=== PATIENT | female | born 1975 | race Caucasian/White ===

== ENCOUNTER 2018-06-19 09:59 | Emergency (ER) | payer BC, MEDICAID, OTHER ==
[2018-06-19 11:02] VITALS: BP 111/65
--- NOTE | 2018-06-19 12:03 | UC ---
Ear Complaint HPI - HPI Summary HPI Summary: Pt c/o gradual worsening of right ear pain X 2 days. Denies fever, chills, URI symptoms or injury. - History of Current Complaint Chief Complaint: UCEar Stated Complaint: RT EAR COMPLAINT Time Seen by Provider: 06/19/18 11:24 Hx Obtained From: Patient Hx From Patient Unobtainable Due To: Dementia Hx Last Menstrual Period: 05/31/18 ?: No Onset/Duration: Gradual Onset, Lasting Days, Still Present, Worse Since Severity Initially: Mild Severity Currently: Mild Pain Intensity: 3 Associated Signs/Symptoms: Positive: Hearing Loss, Foreign Body Sensation - Allergies/Home Medications Allergies/Adverse Reactions: Allergies Allergy/AdvReac Type Severity Reaction Status Date / Time No Known Allergies Allergy Verified 06/19/18 11:01 Home Medications: Home Medications Ascorbic Acid [Vitamin C] 1,000 mg PO ONCE PRN 06/19/18 [History Confirmed 06/19] Echinacea 380 mg PO ONCE PRN 06/19/18 [History Confirmed 06/19/18] Zinc 1 tab PO ONCE PRN 06/19/18 [History Confirmed 06/19/18] PMH/Surg Hx/FS Hx/Imm Hx Previously Healthy: Yes - Surgical History Surgical History: Yes Surgery Procedure, Year, and Place: tubes tied - Family History Known Family History: Positive: Cardiac Disease - Social History Occupation: Employed Full-time Lives: With Family Alcohol Use: Occasionally Substance Use Type: None Smoking Status (MU): Never Smoked Tobacco Have You Smoked in the Last Year: No Review of Systems All Other Systems Reviewed And Are Negative: Yes Constitutional: Positive: Negative Skin: Positive: Negative Eyes: Positive: Blurred Vision ENT: Positive: Ear Ache Respiratory: Positive: Negative Cardiovascular: Positive: Negative Gastrointestinal: Positive: Negative Genitourinary: Positive: Negative Motor: Positive: Negative Neurovascular: Positive: Negative Musculoskeletal: Positive: Negative Neurological: Positive: Negative Psychological: Positive: Negative Is Patient Immunocompromised?: No Physical Exam Triage Information Reviewed: Yes Appearance: Well-Appearing Vital Signs: Initial Vital Signs Temp 98.6 F 06/19/18 10:58 Pulse 84 06/19/18 10:58 Resp 18 06/19/18 10:58 BP 111/65 06/19/18 10:58 Pulse Ox 99 06/19/18 10:58 Vital Signs Reviewed: Yes Eye Exam: Normal ENT: Positive: Other - cerumen in right ear canal. Parital removal. Pt unable to tolerate continued irrigation due to pain and scant amount of bleeding from damage to ear canal with cerumen removal. Ear Complaint Course/Dx - Differential Dx/Diagnosis Differential Diagnosis/HQI/PQRI: Cerumen Impaction, Otitis Externa, Otitis Media Provider Diagnosis: Impacted cerumen, right ear Discharge - Sign-Out/Discharge Documenting (check all that apply): Patient Departure All imaging exams completed and their final reports reviewed: No Studies - Discharge Plan Condition: Stable Disposition: HOME Patient Education Materials: Cerumen Impaction (ED), Earache (ED) Referrals: [facility] [[place]] - If Needed No Primary Care Phys,NOPCP [Primary Care Provider] - - Billing Disposition and Condition Condition: STABLE Disposition: Home - Attestation Statements Provider Attestation: I was available for consult. This patient was seen by the TODD. The patient was not presented to, seen by, or examined by me. -Gabino
== END 2018-06-19 12:12 | disposition home or self-care (01) ==
LOC: UCCORT 09:59
DX: H61.21 Impacted cerumen, right ear (principal)
CPT/HCPCS: 99212; G0463